=== PATIENT | male | born 1950 | race Caucasian/White ===

== ENCOUNTER 2016-11-17 20:16 | Emergency (ER) | payer MEDICARE, OTHER ==
[~2016-11-17] VITALS: Ht 188 cm; Wt 107.4 kg
[~2016-11-17 20:16] MED LIST: ASPI81TA50 PO; MULT-658 PO; OMEG1CAP24 PO; vit D3 PO; vit c PO
[2016-11-17] MEDS ORDERED: GLUCAGON 1 MG ONE (20:43)
[2016-11-17] MEDS ORDERED: GLUCAGON 1 MG IM ONE (21:00)
[2016-11-17] MEDS ORDERED: OMNIPAQUE 350 MG/ML, 150 ML BOTTLE ONE (21:10)
[2016-11-17] MEDS ORDERED: FENTANYL PF 100 MCG/2ML ONE (22:36)
[2016-11-17] MEDS ORDERED: MIDAZOLAM 1 MG/ML, 5ML ONE (22:37)
[2016-11-17] MEDS ORDERED: ONDANSETRON 2MG/ML, 2ML ONE (22:45)
[2016-11-17] MEDS ORDERED: METOPROLOL TARTRATE 25 MG TABLET PO ONE (23:00)
[2016-11-17] MEDS ORDERED: ONDANSETRON 2MG/ML, 2ML IVPush ONE (23:00)
[2016-11-17] MEDS ORDERED: PROPOFOL 10 MG/ML, 20ML ONE (23:15)
[2016-11-18] MEDS ORDERED: MIDAZOLAM 1 MG/ML, 2ML IVPush ONE (00:30)
[2016-11-18] MEDS ORDERED: FENTANYL PF 100 MCG/2ML IV ONE (00:30)
[2016-11-18 01:06] VITALS: BP 100/73
== END 2016-11-18 01:09 | disposition home or self-care (01) ==
LOC: ED 23:12
DX: T18.128A Food in esophagus causing other injury, initial encounter (principal); X58.XXXA Exposure to other specified factors, initial encounter; Y93.89 Activity, other specified; Y92.89 Other specified places as the place of occurrence of the external cause; Y99.9 Unspecified external cause status
CPT/HCPCS: 43247; 71020; 74220; 93005; 96372; 96374; 96375; 99284; J1610; J2250; J2405; J3010; Q9967